=== PATIENT | female | born 1985 | race Caucasian/White ===

== ENCOUNTER 2023-10-19 05:20 | Emergency (ER) | payer SELFPAY ==
[~2023-10-19] VITALS: Ht 162.6 cm; Wt 65.8 kg
[2023-10-19 05:31] VITALS: BP 120/61; PULSE 65; RESP 14; TEMP 98.6; O2SAT 98
[2023-10-19 06:16] LABS: APPEARANCE,URINE CLEAR (CLEAR); BILIRUBIN,URINE NEGATIVE (NEGATIVE); BLOOD, URINE NEGATIVE (NEGATIVE); COLOR,URINE YELLOW (YELLOW); LEUKOCYTE ESTERASE ,URINE 1+ (NEGATIVE); NITRITE, URINE NEGATIVE (NEGATIVE); PROTEIN,URINE NEGATIVE (NEGATIVE); UGLUCOSE NEGATIVE (NEGATIVE); UROBILINOGEN,URINE 0.2 EU/dL (0.2 - 1)
[2023-10-19] MEDS: ONDANSETRON 4 MG ODT PO ONE (06:33)
[2023-10-19] MEDS: ACETAMINOPHEN EXTRA STRENGTH 500 MG TAB PO ONE (06:34)
[2023-10-19] MEDS: KETOROLAC 30 MG/ML VIAL IM ONE (06:34)
[2023-10-19 06:37] LABS: BACTERIA,URINE 2+ /HPF (None Seen); MUCUS,URINE 1+ /LPF (None Seen); RBC,URINE 0-5 /HPF (0-5); TRICHOMONAS,URINE None Seen /HPF (None Seen); YEAST,URINE None Seen /HPF (None Seen)
[2023-10-19] MEDS ORDERED: CEPH-588 PO (07:19)
[2023-10-19] MEDS ORDERED: ONDA-188 SL (07:19)
[2023-10-19] MEDS ORDERED: ACET500T99 PO (07:19)
[2023-10-19] MEDS ORDERED: IBUP-2218 PO (07:19)
[2023-10-19 08:13] VITALS: BP 110/58; PULSE 59; RESP 16; TEMP 97.8; O2SAT 98
== END 2023-10-19 08:13 | disposition home or self-care (01) ==
LOC: MED 05:20
DX: G44.86 Cervicogenic headache (principal); N39.0 Urinary tract infection, site not specified; Z79.1 Long term (current) use of non-steroidal anti-inflammatories (NSAID); Z79.899 Other long term (current) drug therapy
CPT/HCPCS: 81001; 81025; 87086; 96372; 99283; J1885; Q0162